=== PATIENT | female | born 1995 | race Caucasian/White ===

== ENCOUNTER 2016-10-27 16:36 | Outpatient (CLI) | payer OTHER ==
[2016-10-27 17:30] LABS: APPEARANCE,URINE SLIGHTLY-CLOUDY; BILIRUBIN,URINE NEGATIVE (NEGATIVE); GLUCOSE, URINE NEGATIVE (NEGATIVE); KETONES,URINE NEGATIVE (NEGATIVE); LEUKOCYTE ESTERASE,URINE TRACE (NEGATIVE); NITRITE,URINE NEGATIVE (NEGATIVE); PROTEIN,URINE NEGATIVE (NEGATIVE); UROBILINOGEN,URINE NEGATIVE mg/dL (<2.0)
[2016-10-27 17:53] LABS: URINE BARBITURATES SCREEN NEGATIVE; URINE METHADONE SCREEN NEGATIVE; URINE OPIATES LOW NEGATIVE; URINE PHENCYCLIDINE SCREEN NEGATIVE
== END 2016-10-27 18:00 | disposition home or self-care (01) ==
LOC: LC 16:36
PROVIDERS: ATTEND Student in an Organized Health Care Education/Training Program
PROC: 4A1HXCZ Monitoring of Products of Conception, Cardiac Rate, External Approach (ICD-10-PCS; principal; 2016-10-27)
DX: O47.1 False labor at or after 37 completed weeks of gestation (principal); Z3A.37 37 weeks gestation of pregnancy
CPT/HCPCS: 59025; 80307; 81005

== ENCOUNTER 2016-11-16 09:35 | Outpatient (CLI) | payer OTHER | END 2016-11-16 10:08 | disposition home or self-care (01) | LOC: LC 09:35 | PROVIDERS: ATTEND Student in an Organized Health Care Education/Training Program | PROC: 4A1HXCZ Monitoring of Products of Conception, Cardiac Rate, External Approach (ICD-10-PCS; principal; 2016-11-16) | DX: O48.0 Post-term pregnancy (principal); Z3A.40 40 weeks gestation of pregnancy | CPT/HCPCS: 59025 ==

== ENCOUNTER 2016-11-17 08:35 | Inpatient (IN) | payer OTHER ==
--- NOTE | 2016-11-17 08:51 | Non Stress Test Report ---
Non Stress Test Datetime Report Generated by CPN: 11/17/2016 08:51 DEMOGRAPHIC Test Number: 1 EGA NST: 40.0 EGA NST: 37.1 INDICATION Indication for Study: Ordered by Provider Indication for Study: Other VITAL SIGNS Temperature - NST: 98.0 MONITORING Monitor Explained: Monitor Explained; Test Explained Monitor Explained: Monitor Explained; Test Explained; Patient Verbalized Understanding Time on Monitor: 11/16/2016 09:45 Time on Monitor: 10/27/2016 17:10 Time off Monitor: 10/27/2016 17:30 NST Duration: 20 NST INTERVENTIONS NST Interventions: PO Hydration NST Interventions: PO Hydration Physician Notified NST: Tino, CNM Physician Notified NST: Dr. Peguero BABY A: [id number] BABY A Movement : Present Movement : Present Contraction Frequency : x2 Contraction Frequency : 0 FHR Baseline : 130 FHR Baseline : 140 Accelerations : 15X15 Accelerations : 15X15 Decelerations : None Decelerations : None Variability : Moderate 6-25bpm Variability : Moderate 6-25bpm NST Review: Meets Criteria for Reactive NST NST Review: Meets Criteria for Reactive NST (Annotations: Data stored by N on behalf of user) NST Results: Reactive NST Results: Reactive NST REPORT Report Trigger: Send Report
[2016-11-17 09:18] LABS: APPEARANCE,URINE SLIGHTLY-CLOUDY; BILIRUBIN,URINE NEGATIVE (NEGATIVE); GLUCOSE, URINE NEGATIVE (NEGATIVE); KETONES,URINE NEGATIVE (NEGATIVE); LEUKOCYTE ESTERASE,URINE NEGATIVE (NEGATIVE); NITRITE,URINE NEGATIVE (NEGATIVE); PROTEIN,URINE NEGATIVE (NEGATIVE); URINE SPECIFIC GRAVITY 1.009; UROBILINOGEN,URINE NEGATIVE mg/dL (<2.0)
[2016-11-17 09:32] LABS: URINE BARBITURATES SCREEN NEGATIVE; URINE METHADONE SCREEN NEGATIVE; URINE OPIATES LOW NEGATIVE; URINE PHENCYCLIDINE SCREEN NEGATIVE
[2016-11-17 09:54] LABS: HEMATOCRIT 35.2 % (36.0-47.0); HEMOGLOBIN 12.1 g/dL (12.0-15.5); HGB HCT DIFFERENCE 1.1; MEAN CORPUSCULAR HEMOGLOBIN 29.6 pg (27.0-33.4); MEAN CORPUSCULAR HGB CONC 34.3 g/dL (32.0-36.0); MEAN CORPUSCULAR VOLUME 86 fl (80-97); RED BLOOD COUNT 4.07 10^6/uL (3.72-5.28); RED CELL DISTRIBUTION WIDTH 13.7 % (11.5-14.0); WHITE BLOOD COUNT 11.3 10^3/uL (4.0-10.5)
[2016-11-17] MEDS ORDERED: OXYTOCIN/NORMAL SALINE 20 UNIT/1,000 ML RTUINJ ONE (09:59)
[2016-11-17] MEDS ORDERED: MISOPROSTOL 0.2 MG TABLET ONE (09:59)
[2016-11-17] MEDS ORDERED: LIDOCAINE 1% INJ-PF (10 MG/ML) 30 ML SDV ONE (09:59)
[2016-11-17] MEDS ORDERED: FENTANYL/BUPIVACAINE/NS/PF 200 MCG/100 ML RTUINJ EPI ONE (10:27)
[2016-11-17] MEDS ORDERED: BUPIVACAINE HCL 0.25 % INJ/PF (2.5 MG/1 ML) 30 ML VIAL ONE (10:27)
[2016-11-17] MEDS ORDERED: EPHEDRINE SULFATE INJ 50 MG/1 ML AMPULE ONE (10:27)
[2016-11-17] MEDS ORDERED: OXYTOCIN/NORMAL SALINE 20 UNIT/1,000 ML RTUINJ IV PRN (15:53)
[2016-11-17] MEDS ORDERED: MEASLES,MUMPS&RUBELLA VACC/PF 0.5 ML VIAL SUBCUT PRN (15:53)
[2016-11-17] MEDS ORDERED: DIBUCAINE 1% OINTMENT 28 GM TP PRN (15:53)
[2016-11-17] MEDS ORDERED: ZOLPIDEM TARTRATE 5 MG TABLET PO PRN (15:53)
[2016-11-17] MEDS ORDERED: PROMETHAZINE HCL INJ 25 MG/1 ML VIAL IV PRN (15:53)
[2016-11-17] MEDS ORDERED: GLYCERIN/WITCH HAZEL LEAF 1 EACH MED..PAD TP PRN (15:53)
[2016-11-17] MEDS ORDERED: ACETAMINOPHEN 650 MG SUPP.RECT PR PRN (15:53)
[2016-11-17] MEDS ORDERED: PROMETHAZINE HCL 25 MG TABLET PO PRN (15:53)
[2016-11-17] MEDS ORDERED: NA PHOS,M-B/NA PHOS,DI-BA (ADULT) 133 ML ENEMA PR PRN (15:53)
[2016-11-17] MEDS ORDERED: BENZOCAINE/MENTHOL AEROSOL SPRAY 56 ML TOP PRN (15:53)
[2016-11-17] MEDS ORDERED: PSEUDOEPHEDRINE HCL 30 MG TABLET PO PRN (15:53)
[2016-11-17] MEDS ORDERED: DIPH/PERTUSS(ACELL)/TETANUS VAC/PF 0.5 ML SYR (>=10YO) IM PRN (15:53)
[2016-11-17] MEDS ORDERED: PROMETHAZINE HCL 25 MG SUPP.RECT PR PRN (15:53)
[2016-11-17] MEDS ORDERED: MAGNESIUM HYDROXIDE SUSP 30 ML UDCUP PO PRN (15:53)
[2016-11-17] MEDS ORDERED: ACETAMINOPHEN WITH CODEINE #3 TABLET PO PRN ×2 (15:53)
[2016-11-17] MEDS ORDERED: DIPHENHYDRAMINE HCL 25 MG CAPSULE PO PRN (15:53)
--- NOTE | 2016-11-17 17:10 | Delivery Summary ---
Del Sum A-C Datetime Report Generated by CPN: 11/17/2016 17:09 DELIVERY PERSONNEL DELIVERY PERSONNEL: [id number] Delivery Doctor:: Eulalia Randall MD Anesthesiologist:: Arnie Haynes MD Labor and Delivery Nurse:: Heidi Randall RNcardiology physician assistant Nurse:: Chanelle Doran RN Nursery Nurse:: Carmelina Johns RN Cotton Inspector/EARLY CHILDHOOD ASSOCIATE: Maura Wilde CST Cotton Inspector/EARLY CHILDHOOD ASSOCIATE: Jo Mcnamara CNA II Additional Personnel: : VERNELL Salamanca MATERNAL INFORMATION Delivery Anesthesia: Epidural Medications After Delivery: Pitocin Bolus-Please Comment Meds After Delivery Comment: 20 Units in 1000ml Estimated Blood Loss (ml): 250 Maternal Complications: None LABOR SUMMARY EDC: 11/16/2016 00:00 No. Babies in Womb: 1 Attempted: No Labor Anesthesia: Epidural LABOR INFORMATION Reason for Induction: Not Applicable Onset of Labor: 11/17/2016 07:30 Complete Dilatation: 11/17/2016 14:50 Oxytocin: N/A Group B Beta Strep: Negative Antibiotics # of Doses: 0 Antibiotics Time of Last Dose: n/a Name of Antibiotic Given: n/a Steroids Given: None Reason Steroids Not Administered: Not Applicable MEMBRANES Membranes Rupture Method: Artificial Rupture of Membranes: 11/17/2016 14:47 Length of Rupture (hr): 0.08 Amniotic Fluid Color: Heavy Meconium Amniotic Fluid Amount: Moderate Amniotic Fluid Odor: Normal STAGES OF LABOR Stage 1 hr: 7 Stage 1 min: 20 Stage 2 hr: 0 Stage 2 min: 2 Stage 3 hr: 0 Stage 3 min: 2 Total Time in Labor hr: 7 Total Time in Labor min: 24 VAGINAL DELIVERY Episiotomy: None Laceration Extension: N/A Laceration Type: None Laceration Repair: Not Applicable Sponge Count Correct: N/A Sharps Count Correct: N/A CSECTION DELIVERY Primary Indication: N/A Secondary Indication: N/A CSection Urgency: N/A CSection Incidence: N/A Labor: N/A Elective: N/A CSection Incision: N/A BABY A INFORMATION Delivery Date/Time: 11/17/2016 14:52 Method of Delivery: Vaginal Born in Route : No : N/A Forceps: N/A Vacuum Extraction: N/A Shoulder Dystocia : No PRESENTATION/POSITION BABY A Presentation: Cephalic Cephalic Presentation: Vertex Vertex Position: OA Breech Presentation: N/A PLACENTA INFORMATION BABY A Placenta Delivery Time : 11/17/2016 14:54 Placenta Method of Delivery: Spontaneous Placenta Status: Delivered SCORES BABY A Heart Rate 1 min: >100 bpm Resp Effort 1 min: Slow, Irregular Reflex Irritability 1 min: Cough or Sneeze or Pulls Away Muscle Tone 1 min: Some Flexion of Extremities Color 1 min: Blue/Pale Resuscitation Effort 1 min: Tactile Stimulation; Oxygen; PPV/NCPAP SCORE 1 MIN: 6 Heart Rate 5 min: >100 bpm Resp Effort 5 min: Good Cry Reflex Irritability 5 min: Cough or Sneeze or Pulls Away Muscle Tone 5 min: Active Motion Color 5 min: Body Steele, Extremities Blue Resuscitation Effort 5 min: Tactile Stimulation SCORE 5 MIN: 9 INFORMATION BABY A Gestational Age at Delivery: 40.1 Gestational Status: Full Term- 39- 40.6 Weeks Outcome : Liveborn Infant Condition : Stable Sex: Male IDENTIFICATION BABY A Verification Date/Time: 11/17/2016 16:03 ID Band Number: [id number] Mother's Name Verified: Yes RN Verifying Infant: M Prakash, RN, D. Coty, RN WEIGHT/LENGTH BABY A Infant Birthweight (gm): 3530 Weight (lb): 7 Infant Weight (oz): 13 Infant Length (in): 19.75 Length (cm): 50.17 CORD INFORMATION BABY A No. Cord Vessels: 3 Nuchal Cord : N/A Cord Blood Taken: Yes-For Storage (Mom's Blood type +) Suction: Mouth; Nose ASSESSMENT BABY A Infant Complications: None Physical Findings at Delivery: Within Normal Limits Infant Respirations: Appears Normal Skin to Skin: Yes Skin to Skin Time (min): 60 Tank Builder/ALS Called : No Infant Care By: Malka Alberlorelei, RN Transferred To: Remains with Mother BABY B INFORMATION : N/A SIGNATURES Signature: with User ID: [email or web address]
--- NOTE | 2016-11-17 17:24 | Admission Physical ---
Datetime Report Generated by CPN: 11/17/2016 17:23 CURRENT ADMISSION Indication for Induction: Not Applicable Admit Plan: Admit to Unit; Initiate Labor Protocol ALLERGIES Medication Allergies: No Medication Allergies: No Known Allergies (11/17/2016) Medication Allergies: No Known Allergies (10/27/2016) Latex: No Latex Allergies OBSTETRICAL HISTORY EDC: 11/16/2016 00:00 : 2 Para: 1 Term: 1 Livin Gestational Diabetes: No Rh Sensitization: No Incompetent Cervix: No YAYO: No Infertility: No ART Treatment: No Uterine Anomaly: No IUGR: No Hx Previous C/S: No Macrosomia: No Hx Loss/Stillborn: No PIH: No Hx : No Placenta Previa/Abruption: No Depression/PP Depression: No PTL/PROM: No Post Hemorrhage: No Current Procedures: Ultrasound; NST Obstetrical History Comments: G1: 2013 39 week induction for decreased movement G2: current SEE RECORDS Alcohol: No Marijuana : No Cocaine: No Other Illicit Drugs: No Cigarettes: Former Smoker. [id number] Advised to Stop: No Cigarette Comments: Quit smoking 3 years ago. 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 Surgery: No Heart Disease: No Hosp/Surgery: Yes Autoimmune Disorder: No Anesthetic Complications: No Kidney Disease: No Abnormal Pap Smear: No Neuro/Epilepsy: No Psychiatric Disorders: No Other Medical Diseases: No Hepatitis/Liver Disease: No Significant Family History: No Varicosities/Phlebitis: No Trauma/Violence : No Thyroid Dysfunction: No INFECTIOUS HISTORY Gonorrhea: No Genital Herpes: No Chlamydia: No Tuberculosis: No Syphilis: No Hepatitis: No HIV/AIDS Exposure: No Rash or Viral Illness: No HPV: No PHYSICAL EXAM General: Normal HEENT: Normal Neurologic: Normal Thyroid: Normal Heart: Normal Lungs: Normal Breast: Normal Back: Normal Abdomen: Normal Genitourinary Exam: Normal Extremities: Normal DTRs: Normal Pelvic Type: Adequate Vital Signs: Reviewed; Within Normal Limits VAGINAL EXAM Dilatation: 6 Effacement: 100 Station: -2 MEMBRANES Pooling: Negative Membranes: Intact FETUS A Monitoring: External US FHR- Baseline: 150 Variability: Moderate 6-25bpm Accelerations: 15X15 Decelerations: None FHR Category: Category I Estimated Weight (gm): 3600 Presentation: Vertex PLANS FOR LABOR AND DELIVERY Labor and Delivery: None Pain Management: Epidural Feeding Preference: Breast Benefit of Breast Feed Discussed: Yes Circumcision: Yes INFORMED CONSENT Signature: with User ID: [email or web address]
[2016-11-17] MEDS: DOCUSATE SODIUM 100 MG CAPSULE PO SCH (18:23)
[2016-11-17] MEDS: FERROUS SULFATE 325 MG TABLET PO SCH (18:23)
[2016-11-17] MEDS: FAMOTIDINE 20 MG TABLET PO SCH (21:26)
[2016-11-17] MEDS: IBUPROFEN 800 MG TABLET PO SCH (21:27)
[2016-11-18] MEDS: IBUPROFEN 800 MG TABLET PO SCH ×3 (05:29→21:21)
[2016-11-18 08:15] LABS: HEMATOCRIT 32.3 % (36.0-47.0); HEMOGLOBIN 11.2 g/dL (12.0-15.5); HGB HCT DIFFERENCE 1.3; MEAN CORPUSCULAR HEMOGLOBIN 30.4 pg (27.0-33.4); MEAN CORPUSCULAR HGB CONC 34.8 g/dL (32.0-36.0); MEAN CORPUSCULAR VOLUME 87 fl (80-97); RED BLOOD COUNT 3.69 10^6/uL (3.72-5.28); RED CELL DISTRIBUTION WIDTH 13.8 % (11.5-14.0); WHITE BLOOD COUNT 10.5 10^3/uL (4.0-10.5)
[2016-11-18] MEDS: FERROUS SULFATE 325 MG TABLET PO SCH ×2 (09:17→17:22)
[2016-11-18] MEDS: DOCUSATE SODIUM 100 MG CAPSULE PO SCH ×2 (09:17→17:22)
[2016-11-18] MEDS: SENNOSIDES/DOCUSATE 8.6-50 MG 1 EACH TABLET PO SCH (09:18)
[2016-11-18] MEDS: FAMOTIDINE 20 MG TABLET PO SCH ×2 (09:19→21:21)
[2016-11-18] MEDS: PRENATAL VITAMIN W-O CA NO5/FE FUMARATE/FA CAPSULE PO SCH (09:19)
--- NOTE | 2016-11-18 11:37 | PDOC PROGRESS REPORT ---
Subjective-OB Subjective: Post Delivery Day: 21 year old. Denies any needs at this time. Pt reports light bleeding, regular diet, voiding without difficulty. She has no complaints. Physical Exam (OB) Vital Signs: Temp Pulse Resp BP Pulse Ox 97.8 F 77 16 124/73 100 11/18/16 07:54 11/18/16 07:54 11/18/16 07:54 11/18/16 07:54 11/18/16 07:54 Intake & Output 11/17/16 11/18/16 11/19/16 06:59 06:59 06:59 Intake Total 300 Balance 300 Weight 100.55 kg - Lochia Lochia Amount: Small 10-25 ml Lochia Color: Rubra/Red - Abdomen Description: Tender Hernia Present: No Fundal Description: Firm Fundal Height: u/u - u/2 Objective-Diagnostic Laboratory: 11/18/16 07:55 11/18/16 07:55 WBC 10.5 RBC 3.69 L Hgb 11.2 L Hct 32.3 L MCV 87 MCH 30.4 MCHC 34.8 RDW 13.8 Plt Count 161 Assessment and Plan(PN) - Assessment and Plan (1) Vaginal delivery Is this a current diagnosis for this admission?: Yes - Time Spent with Patient Time with patient: Less than 15 minutes Medications reviewed and adjusted accordingly: Yes - Disposition Anticipated Discharge: Home Within: within 24 hours
[2016-11-19] MEDS: IBUPROFEN 800 MG TABLET PO SCH (05:47)
--- NOTE | 2016-11-19 08:49 | PDOC PROGRESS REPORT ---
Subjective-OB Subjective: Post Delivery Day: 21 year old. Denies any needs at this time Doing well, no c/o, breast feeding Physical Exam (OB) Vital Signs: Temp Pulse Resp BP Pulse Ox 98.0 F 79 18 119/73 100 11/18/16 19:26 11/18/16 19:26 11/18/16 19:26 11/18/16 19:26 11/18/16 19:26 Intake & Output 11/18/16 11/19/16 11/20/16 06:59 06:59 06:59 Intake Total 300 350 Balance 300 350 Weight 100.55 kg - Lochia Lochia Amount: Scant < 10 ml Lochia Color: Rubra/Red - Abdomen Description: Tender, Soft, Round Hernia Present: No Fundal Description: Firm, Midline Fundal Height: u/u - u/2 Objective-Diagnostic Laboratory: 11/18/16 07:55 Assessment and Plan(PN) - Assessment and Plan (1) Vaginal delivery Is this a current diagnosis for this admission?: Yes - Time Spent with Patient Time with patient: Less than 15 minutes Medications reviewed and adjusted accordingly: Yes - Disposition Anticipated Discharge: Home Within: Other - home today
--- NOTE | 2016-11-19 08:51 | PDOC DISCHARGE SUMMARY ---
Final Diagnosis Discharge Date: 11/19/16 - Final Diagnosis (1) Vaginal delivery Is this a current diagnosis for this admission?: Yes Discharge Data - Discharge Medication Home Medications: Vit 10/Iron/Folic/Dha [Vitafol-Ob+Dha Combo Pack] 1 each PO DAILY 10/27 Gestational Age: 40.1 Reason(s) for Admission: Onset of Labor Procedures: Ultrasound Intrapartum Procedure(s): Spontaneous Vaginal Delivery - Data Baby 1 Male at 1 minute: 6 at 5 minutes: 9 Weight: 3.544 kg Home with Mother: Yes Complications: No - Diagnosis Test Laboratory: Temp Pulse Resp BP Pulse Ox 98.0 F 79 18 119/73 100 11/18/16 19:26 11/18/16 19:26 11/18/16 19:26 11/18/16 19:26 11/18/16 19:26 11/17/16 11/17/16 11/18/16 08:45 09:37 07:55 RBC 4.07 3.69 L Hgb 12.1 11.2 L Hct 35.2 L 32.3 L Urine Opiates Screen NEGATIVE - Discharge information/Instructions Discharge Activity: Activity As Tolerated, Balance Activity w/Rest, No Lifting Over 10 Pounds, No Lifting/Push/Pulling, Pelvic Rest, No tub bath Discharge Diet: As Tolerated, Regular Disposition: HOME, SELF-CARE Follow up with: [facility] in: 4, Weeks
[2016-11-19 09:12] VITALS: BP 124/76
[2016-11-19] MEDS: PRENATAL VITAMIN W-O CA NO5/FE FUMARATE/FA CAPSULE PO SCH (09:15)
[2016-11-19] MEDS: FERROUS SULFATE 325 MG TABLET PO SCH (09:15)
[2016-11-19] MEDS: DOCUSATE SODIUM 100 MG CAPSULE PO SCH (09:15)
[2016-11-19] MEDS: FAMOTIDINE 20 MG TABLET PO SCH (09:15)
[2016-11-19] MEDS: SENNOSIDES/DOCUSATE 8.6-50 MG 1 EACH TABLET PO SCH (09:16)
== END 2016-11-19 12:07 | disposition home or self-care (01) | DRG 775 ==
LOC: LC 08:35 → LR 09:19 → 2S 17:20
PROVIDERS: ADMIT Obstetrics & Gynecology; ATTEND Obstetrics & Gynecology
PROC: 10E0XZZ Delivery of Products of Conception, External Approach (ICD-10-PCS; principal; 2016-11-17)
PROC: 4A1HXCZ Monitoring of Products of Conception, Cardiac Rate, External Approach (ICD-10-PCS; 2016-11-17)
DX: O77.0 Labor and delivery complicated by meconium in amniotic fluid (principal); O36.8130 Decreased fetal movements, third trimester, not applicable or unspecified; Z3A.40 40 weeks gestation of pregnancy; Z87.891 Personal history of nicotine dependence; Z37.0 Single live birth
CPT/HCPCS: 36415; 80307; 81005; 85027; 86592; 86850; 86900; 86901; J2590; J3490